=== PATIENT | female | born 1935 | race Caucasian/White ===

== ENCOUNTER 2016-12-06 16:32 | Day surgery (SDC) | payer MEDICARE, OTHER ==
[2016-12-06] MEDS ORDERED: Fluorouracil 100 MG, Enoxaparin Sodium 25 MG, EPINEPHrine 0.3 MG in Ophthalmic Irrigati... IVPB SCH (17:00)
[2016-12-06] MEDS ORDERED: Fentanyl 100 MCG/2 ML VIAL ONE (17:09)
[2016-12-06] MEDS ORDERED: Midazolam HCl 2 mg/2 ml Vial ONE (17:09)
[2016-12-06] MEDS ORDERED: Diprivan 20 ML ONE (17:09)
[2016-12-06] MEDS ORDERED: Cyclopentolate 1% Opth Drop 2 ML BOT ONE (17:11)
[2016-12-06] MEDS ORDERED: Phenylephrine HCl 2.5% Ophth Soln 5 ML BOT ONE (17:11)
[2016-12-06] MEDS ORDERED: Propofol 200 MG/20 ML VIAL ONE (18:01)
[2016-12-06] MEDS ORDERED: Lidocaine 2% PF 10 ML AMP (For Epidural Use) ONE (18:01)
--- NOTE | 2016-12-07 08:00 | OP ---
DATE OF PROCEDURE: 12/06/2016 PREOPERATIVE DIAGNOSIS: Rhegmatogenous retinal detachment, left eye. POSTOPERATIVE DIAGNOSIS: Rhegmatogenous retinal detachment, left eye. PROCEDURES: Pars plana vitrectomy and retinal detachment repair, left eye. SURGEON: Joshua Flores M.D. ANESTHESIA: Local with monitored anesthesia care. COMPLICATIONS: None. PROCEDURE IN DETAIL: The patient was identified in the preoperative holding area. Appropriate info rmed consent for the planned surgical procedure on the left eye had been obtained. The patient was transported to the operative suite. Appropriate cardiopulmonary monitoring was established. Local anesthesia was obtained using retrobulbar and modified Van Lint lid block using 50/50 mixture of 4% lidocaine and 0.75% bupivacaine. The patient was prepped and draped in the usual sterile manner for ophthalmic surgery on the left eye. Lid speculum was placed in the left eye. The 25-gauge trocars were placed in conjunctiva and sclera supratemporally, inferotemporally, and supranasally. Infusio n line was placed inferotemporally. Light pipe and vitreous cutter were inserted into the eye. Cor e vitrectomy was performed. Tear was noted at the 12 o'clock position. Subretinal fluid was draine d. Posterior drain retinotomy was created superior to the nerve. Complete air fluid exchange was p erformed with 10 minutes being allowed for fluid to drain posteriorly. A 28% sulfur hexafluoride ga s was infused into the eye. Trocars were removed. Eye was noted to retain pressure well. Retrobul bar Kenalog and subconjunctival Ancef were placed. Atropine and antibiotic ointment were placed, an d the eye was patched and shielded. The patient was taken to the postoperative recovery unit in goo d condition suffered no apparent immediate perioperative complications. DISCHARGE INSTRUCTIONS: Patient was instructed to keep patch and shield on, avoid lifting or bendin g, and follow up in the morning with Dr. Flores.
== END 2016-12-06 19:30 | disposition home or self-care (01) ==
LOC: SDC 16:32
PROVIDERS: ATTEND Ophthalmology Retina Specialist
PROC: 08953ZZ Drainage of Left Vitreous, Percutaneous Approach (ICD-10-PCS; principal; 2016-12-06)
DX: H33.002 Unspecified retinal detachment with retinal break, left eye (principal)
CPT/HCPCS: 67025; J0171; J1650; J2001; J2250; J2704; J3010; J9190

== ENCOUNTER 2017-03-03 07:44 | Day surgery (SDC) | payer MEDICARE, OTHER ==
[2017-03-02 17:25] VITALS: BMI 21.6
[~2017-03-03 07:44] MED LIST: Cyclopentolate 1% Opth Drop 2 ML BOT FS SCH; Fluorouracil 100 MG, Enoxaparin Sodium 25 MG, EPINEPHrine 0.3 MG in Ophthalmic Irrigati... IVPB SCH; Phenylephrine HCl 2.5% Ophth Soln 5 ML BOT FS SCH
[2017-03-03] MEDS ORDERED: Ondansetron HCl/PF 4 MG/2 ML Vial ONE ×2 (07:58→16:59)
[2017-03-03] MEDS ORDERED: Midazolam HCl 2 mg/2 ml Vial ONE (07:58)
[2017-03-03] MEDS ORDERED: Diprivan 20 ML ONE (07:58)
[2017-03-03] MEDS ORDERED: Phenylephrine HCl 2.5% Ophth Soln 5 ML BOT ONE (08:08)
[2017-03-03] MEDS ORDERED: Cyclopentolate 1% Opth Drop 2 ML BOT ONE (08:08)
--- NOTE | 2017-03-03 11:19 | OP ---
DATE OF PROCEDURE: 03/03/2017 PREOPERATIVE DIAGNOSIS: Tractional retinal detachment, left eye. POSTOPERATIVE DIAGNOSIS: Tractional retinal detachment, left eye. PROCEDURE: Pars plana vitrectomy and retinal detachment repair, left eye. SURGEON: Joshua Flores M.D. ANESTHESIA: Local with monitored anesthesia care. COMPLICATIONS: None. PROCEDURE IN DETAIL: The patient was identified in the preoperative holding area. Appropriate infor med consent for the planned surgical procedure on the left eye had been obtained. The patient was tr ansported to the operative suite where appropriate cardiopulmonary monitoring was established. Local anesthesia was obtained using retrobulbar and modified Van Lint lid block using 50/50 mixture of 4% lidocaine and 0.75% bupivacaine. The patient was prepped and draped in the usual sterile manner for ophthalmic surgery on the left eye. Lid speculum was placed in the left eye. The 25-gauge trocars w ere placed in conjunctiva and sclera supratemporally, inferotemporally, and supranasally. Infusion l ine was placed inferotemporally. Light pipe and vitreous cutter were inserted into the eye. Core of vitrectomy was performed. An area of traction directly superiorly along the previous break was note d that was likely the source of the retinal detachment. Complete air fluid exchange was performed wi th 10 minutes being allowed for fluid to drain posteriorly. A 360 laser was placed with special atte ntion to the area of the superior break. Silicone oil was infused into the eyes through a 20 gauge s clerotomy superiorly and sclerotomy was suture closed with 7-0 Vicryl suture. All sclerotomies were closed with 6-0 plain gut suture. Retrobulbar Kenalog and subconjunctival Ancef were placed. Atropi ne and antibiotic ointment were placed, and the eye was patched and shielded. The patient was taken to the postoperative recovery unit in good condition having suffered no immediate perioperative compl ications. DISCHARGE INSTRUCTIONS: The patient was instructed to keep patch and shield on, position right or le ft side down or head up, and follow up tomorrow afternoon Dr. Flores.
[2017-03-03] MEDS ORDERED: Propofol 200 MG/20 ML VIAL ONE (16:59)
== END 2017-03-03 11:10 | disposition home or self-care (01) ==
LOC: SDC 07:44
PROVIDERS: ATTEND Ophthalmology Retina Specialist
PROC: 08T53ZZ Resection of Left Vitreous, Percutaneous Approach (ICD-10-PCS; principal; 2017-03-03)
PROC: 3E0C3GC Introduction of Other Therapeutic Substance into Eye, Percutaneous Approach (ICD-10-PCS; 2017-03-03)
DX: H33.42 Traction detachment of retina, left eye (principal); Z79.899 Other long term (current) drug therapy; Z90.49 Acquired absence of other specified parts of digestive tract; Z90.89 Acquired absence of other organs; Z98.890 Other specified postprocedural states
CPT/HCPCS: 67108; C1814; J0171; J1650; J2250; J2405; J2704; J9190

== ENCOUNTER 2017-08-18 06:07 | Day surgery (SDC) | payer MEDICARE, OTHER ==
[2017-08-17 09:46] VITALS: BMI 21.1
[~2017-08-18 06:07] MED LIST changes: +Phenylephrine 2.5% Ophth Soln 5 ML BOT FS SCH; -Phenylephrine HCl 2.5% Ophth Soln 5 ML BOT FS SCH
[2017-08-18] MEDS ORDERED: Midazolam HCl 2 mg/2 ml Vial ONE (06:34)
[2017-08-18] MEDS ORDERED: Cyclopentolate 1% Opth Drop 2 ML BOT ONE (06:44)
[2017-08-18] MEDS ORDERED: Phenylephrine 2.5% Ophth Soln 5 ML BOT ONE (06:44)
--- NOTE | 2017-08-18 09:00 | OP ---
DATE OF PROCEDURE: 08/18/2017 PREOPERATIVE DIAGNOSIS: Vitreous opacification, vitreous membranes, left eye. POSTOPERATIVE DIAGNOSIS: Vitreous opacification, vitreous membranes, left eye. PROCEDURE: Pars plana vitrectomy and membrane peel, left eye. SURGEON: Dr. Joshua Flores ANESTHESIA: Local with monitored anesthesia care. PROCEDURE IN DETAIL: The patient was identified in the preoperative holding area. Appropriate infor med consent for the planned surgical procedure on the left eye had been obtained. The patient was tr ansported to the operative suite. Appropriate cardiopulmonary monitoring was established. Local ane sthesia was obtained using retrobulbar and modified Van Lint lid block using 50/50 mixture of 4% lido eliot and 0.75% bupivacaine. The patient was prepped and draped in the usual sterile manner for opht halmic surgery on the left eye. Lid speculum was placed in the left eye. The 25-gauge trocars were placed supratemporally, inferotemporally, and 20 gauge sclerotomy was created superior temporally and supranasally. Infusion line was placed inferotemporally. Silicone oil removal device was placed olguin pranasally and silicone oil was removed. Superior nasal sclerotomy was suture closed with 7-0 Vicryl 6-0 plain gut suture. Retina was inspected 360 degrees. Vitreous cutter was inserted to the eye. The residual vitreous membranes were removed. Trocars were removed and sclerotomy was sutured with 6 -0 plain gut suture. Retrobulbar Kenalog and subconjunctival Ancef were placed. Atropine and antibi otic ointment placed, and the eye was patched and shielded. The patient was taken to the postoperati ve recovery unit in good condition having suffered no immediate perioperative period. DISCHARGE INSTRUCTIONS: Patient was instructed to keep patch and shield on, avoid lifting or bending , and follow up in the morning with Dr. Flores.
[2017-08-18] MEDS ORDERED: PROPOFOL 200 MG/20 ML VIAL ONE (15:52)
== END 2017-08-18 08:20 | disposition home or self-care (01) ==
LOC: SDC 06:07
PROVIDERS: ATTEND Ophthalmology Retina Specialist
PROC: 08T53ZZ Resection of Left Vitreous, Percutaneous Approach (ICD-10-PCS; principal; 2017-08-18)
PROC: 08NF3ZZ Release Left Retina, Percutaneous Approach (ICD-10-PCS; 2017-08-18)
DX: H43.312 Vitreous membranes and strands, left eye (principal); Z79.899 Other long term (current) drug therapy
CPT/HCPCS: J0171; J1650; J2250; J2704; J9190